=== PATIENT | female | born 1960 | race African-American/Black ===

== ENCOUNTER 2021-09-29 08:17 | Emergency (ER) | payer OTHER ==
[~2021-09-29] VITALS: Ht 170.2 cm; Wt 50.0 kg
[2021-09-29] MEDS ORDERED: LEVETIRACETAM 1000MG PREMIX 100 ML IV ONE (09:00)
[2021-09-29 09:24] LABS: EOSINOPHILS % 0.1 % (0.0-5.0); HEMOGLOBIN. 13.1 g/dL (12.0-16.0); LYMPHOCYTES % 18.6 % (20.0-50.0); MEAN CORPUSCULAR HEMOGLOBIN 30.2 pg (28.0-32.0); MEAN CORPUSCULAR VOLUME 92.3 fL (81.0-99.0); MEAN PLATELET VOLUME 9.5 fl (7.4-10.4); NEUTROPHILS % 74.3 % (40.0-76.0); PLATELET 257 x1000/uL (130-400); RED BLOOD CELL COUNT 4.34 mill/uL (4.2-5.4)
[2021-09-29 09:33] LABS: CHLORIDE 106 mEq/L (98-107)
[2021-09-29 10:46] VITALS: BP 132/76
[2021-09-29] MEDS ORDERED: KEPP500 MT (11:10)
== END 2021-09-29 15:46 | disposition home or self-care (01) ==
LOC: ER 08:17
DX: R56.9 Unspecified convulsions (principal); Z91.14 Patient's other noncompliance with medication regimen
CPT/HCPCS: 36415; 80053; 85025; 93005; 96365; 96366; 99284; J1953; Z7610

== ENCOUNTER 2022-03-04 03:58 | Inpatient (IN) | payer MEDICAID, OTHER ==
[~2022-03-04] VITALS: Ht 165.1 cm; Wt 99.8 kg
[~2022-03-04 03:58] MED LIST: KEPP500 MT
[2022-03-04] MEDS ORDERED: ONDANSETRON HCL 4MG/2ML INJ IV STA (04:21)
[2022-03-04] MEDS ORDERED: SODIUM CHLORIDE 0.9% 1,000 ML IV ONE (04:30)
[2022-03-04] MEDS ORDERED: LEVETIRACETAM 1000MG PREMIX 100 ML IV ONE (04:30)
[2022-03-04 04:45] LABS: BG BASE EXCESS -1.6 mmol/L (-2.0-2.0); BG DEOXYHEMOGLOBIN 2.7 % (0.0-5.0); BG FRACTION INSPIRED OXYGEN 100; BG HCO3 ACT 22.8 mmol/L (22.0-26.0); BG METHEMOGLOBIN 0.3 % (0.0-1.5); BG OXYGEN SATURATION 97.2 % (92.0-98.5); BG PCO2 37.8 mmHg (35.0-45.0); BG PH 7.399 (7.350-7.450); BG PO2 98.8 mmHg (75.0-100.0); BG SAMPLE SITE RIGHT BRACHIAL; BG TOTAL HEMOGLOBIN 12.4 g/dL (12.0-18.0); BG VENT MODE MASK - NRB
[2022-03-04 04:56] LABS: BASOPHILS % 0.8 % (0.0-2.0); EOSINOPHILS % 0.6 % (0.0-5.0); HEMATOCRIT. 36.6 % (36.0-48.0); LYMPHOCYTES % 13.6 % (20.0-50.0); MEAN CORPUSCULAR HEMOGLOBIN 30.4 pg (28.0-32.0); MEAN CORPUSCULAR VOLUME 92.5 fL (81.0-99.0); MEAN PLATELET VOLUME 8.4 fl (7.4-10.4); MONOCYTES % 5.9 % (2.0-8.0); NEUTROPHILS % 79.1 % (40.0-76.0); PLATELET 305 x1000/uL (130-400); RED BLOOD CELL COUNT 3.96 mill/uL (4.2-5.4); RED CELL DISTRIBUTION WIDTH 14.4 % (11.6-14.6)
[2022-03-04 05:02] LABS: CHLORIDE 109 mEq/L (98-107)
[2022-03-04 05:12] LABS: ETHANOL BLOOD < 10 mg/dL
[2022-03-04 10:02] LABS: *AMPHETAMINES SCREEN URINE NEGATIVE (NEGATIVE); *BARBITURATES SCREEN URINE NEGATIVE (NEGATIVE); *BENZODIAZEPINES SCREEN URINE PRESUMTIVE POSITIVE (NEGATIVE); *COCAINE SCREEN URINE NEGATIVE (NEGATIVE); CANNABINOID URINE SCREEN PRESUMTIVE POSITIVE (NEGATIVE); METHADONE URINE SCREEN NEGATIVE (NEGATIVE); OPIATES URINE SCREEN NEGATIVE (NEGATIVE); PHENCYCLIDINE URINE SCREEN NEGATIVE (NEGATIVE)
[2022-03-04] MEDS ORDERED: ACETAMINOPHEN 325MG TABLET PO PRN (11:15)
[2022-03-04] MEDS ORDERED: ONDANSETRON HCL 4MG/2ML INJ IV PRN (11:15)
[2022-03-04 20:17] LABS: CLARITY URINE TURBID (CLEAR); COLOR URINE ORANGE (YELLOW); KETONES URINE TRACE (NEGATIVE); LEUKOCYTE ESTERASE URINE NEGATIVE (NEGATIVE); NITRITE URINE NEGATIVE (NEGATIVE); OCCULT BLOOD URINE NEGATIVE (NEGATIVE); PH URINE 5.5 (4.5-8.0); PROTEIN URINE TRACE (NEGATIVE); SPECIFIC GRAVITY URINE 1.023 (1.005-1.030); UROBILINOGEN URINE 0.2 E.U./dL (0.2-1.0)
[2022-03-04] MEDS: LEVETIRACETAM 500MG TABLET PO SCH (21:15)
[2022-03-04 22:00] VITALS: BP 167/80
[2022-03-05] VITALS: BP 140/71
[2022-03-05 04:00] VITALS: BP 123/75
[2022-03-05 08:00] VITALS: BP 143/72
[2022-03-05] MEDS: LEVETIRACETAM 500MG TABLET PO SCH (08:44)
[2022-03-05 16:00] VITALS: BP 141/75
== END 2022-03-05 16:45 | disposition left against medical advice (07) | DRG 53 ==
LOC: ER 04:00 → 8WST 07:04 → ENRESERV 20:26
PROVIDERS: ADMIT Internal Medicine; ATTEND Internal Medicine
DX: G40.901 Epilepsy, unspecified, not intractable, with status epilepticus (principal); E44.1 Mild protein-calorie malnutrition; Z53.29 Procedure and treatment not carried out because of patient's decision for other reasons; F41.9 Anxiety disorder, unspecified; I51.7 Cardiomegaly; F12.90 Cannabis use, unspecified, uncomplicated; Z68.36 Body mass index [BMI] 36.0-36.9, adult; Z91.19 Patient's noncompliance with other medical treatment and regimen
CPT/HCPCS: 36415; 36600; 71045; 80053; 80305; 80320; 81003; 82375; 82805; 83605; 84145; 84484; 85025; 93005; 99291; J1953; J2405; J7030; G0480

== ENCOUNTER 2024-06-19 06:23 | Emergency (ER) | payer BC, MEDICAID ==
[~2024-06-19] VITALS: Ht 165.1 cm; Wt 91.0 kg
[2024-06-19 06:25] VITALS: O2SAT 98
[2024-06-19] MEDS: LEVETIRACETAM 500MG PREMIX 100 ML IV ONE ×2 (07:02→07:12)
[2024-06-19] MEDS: LACTATED RINGERS 1,000 ML IV SCH (07:02)
[2024-06-19 07:15] LABS: BASOPHILS % 1.5 % (0.0-2.0); EOSINOPHILS % 3.3 % (0.0-5.0); HEMATOCRIT. 33.7 % (36.0-48.0); HEMOGLOBIN. 11.1 g/dL (12.0-16.0); LYMPHOCYTES % 37.2 % (20.0-50.0); MEAN CORPUSCULAR HEMOGLOBIN 29.4 pg (28.0-32.0); MEAN CORPUSCULAR VOLUME 89.1 fL (81.0-99.0); MEAN PLATELET VOLUME 8.1 fl (7.4-10.4); MONOCYTES % 8.8 % (2.0-8.0); NEUTROPHILS % 49.2 % (40.0-76.0); PLATELET 283 x1000/uL (130-400); RED BLOOD CELL COUNT 3.78 mill/uL (4.2-5.4); RED CELL DISTRIBUTION WIDTH 14.7 % (11.6-14.6); WHITE BLOOD COUNT 5.9 x1000/uL (4.5-11.0)
[2024-06-19 07:19] LABS: CHLORIDE 104 mEq/L (98-107); POTASSIUM 3.9 mEq/L (3.5-5.1); SODIUM 139 mEq/L (136-145)
[2024-06-19 07:20] LABS: CALCIUM 9.5 mg/dL (8.7-10.4); CARBON DIOXIDE 27 mEq/L (21-32)
[2024-06-19 07:25] LABS: CREATININE 0.8 mg/dL (0.6-1.0); GLUCOSE 92 mg/dL (70-105); UREA NITROGEN BLOOD 15 mg/dL (9-23)
[2024-06-19 07:27] LABS: ALANINE AMINOTRANSFERASE 28 IU/L (10-49); ASPARTATE AMINOTRANSFERASE 16 IU/L (<34); BILIRUBIN TOTAL 0.3 mg/dL (0.1-1.0); PROTEIN TOTAL 7.8 g/dL (6.0-8.3)
[2024-06-19 07:30] VITALS: BP 137/75; PULSE 89; RESP 14; TEMP 36.83628; O2SAT 98
== END 2024-06-19 09:45 | disposition home or self-care (01) ==
LOC: ER 06:23
DX: R56.9 Unspecified convulsions (principal); I10 Essential (primary) hypertension
CPT/HCPCS: 99284; 96365; 80053; 85025; 36415; 93005; J1953

== ENCOUNTER 2024-09-19 09:10 | Emergency (ER) | payer MEDICAID ==
[~2024-09-19] VITALS: Ht 165.1 cm; Wt 99.0 kg
[~2024-09-19 09:10] MED LIST changes: +ATOR20TA65 MT; +ATOR20TA65 PO; +CYAN-33 PO; +DONE5TAB33 PO; +MAGN400T29 PO; +NITR-87 MT; +OXCA300T31 PO; +RISP-28 PO; +THIA50TA10 PO; +VITA400T9 PO; +ZONI100C34 PO
[2024-09-19 09:11] VITALS: O2SAT 96
[2024-09-19 09:58] LABS: BASOPHILS % 1.4 % (0.0-2.0); EOSINOPHILS % 3.5 % (0.0-5.0); HEMOGLOBIN. 11.5 g/dL (12.0-16.0); MEAN CORPUSCULAR HGB CONC 32.8 g/dL (31.0-37.0); MEAN CORPUSCULAR VOLUME 88.5 fL (81.0-99.0); MONOCYTES % 11.2 % (2.0-8.0); NEUTROPHILS % 50.9 % (40.0-76.0); PLATELET 251 x1000/uL (130-400); RED BLOOD CELL COUNT 3.96 mill/uL (4.2-5.4); WHITE BLOOD COUNT 9.1 x1000/uL (4.5-11.0)
[2024-09-19] MEDS: KETOROLAC 30MG/ML VIAL IV STA (09:58)
[2024-09-19] MEDS: LEVETIRACETAM 1000MG PREMIX 1,000 ML IV ONE (10:06)
[2024-09-19 10:17] LABS: CHLORIDE 104 mEq/L (98-107); POTASSIUM 4.1 mEq/L (3.5-5.1); SODIUM 141 mEq/L (136-145)
[2024-09-19 10:18] LABS: CARBON DIOXIDE 28 mEq/L (21-32)
[2024-09-19 10:19] LABS: CALCIUM 9.2 mg/dL (8.7-10.4)
[2024-09-19 10:23] LABS: CREATININE 0.8 mg/dL (0.6-1.0); GLUCOSE 103 mg/dL (70-105); UREA NITROGEN BLOOD 15 mg/dL (9-23)
[2024-09-19 12:15] VITALS: BP 138/72; PULSE 92; RESP 19; TEMP 36.7; O2SAT 100
== END 2024-09-19 12:30 | disposition home or self-care (01) ==
LOC: ER 09:10
DX: R56.9 Unspecified convulsions (principal); M25.561 Pain in right knee; I10 Essential (primary) hypertension; F20.9 Schizophrenia, unspecified; Z79.899 Other long term (current) drug therapy
CPT/HCPCS: 99285; 96365; 96375; 80048; 82962; 85025; 36415; 73560; 73590; 73600; 93005; J1885; A4606

== ENCOUNTER 2024-10-10 04:54 | Emergency (ER) | payer MEDICAID ==
[~2024-10-10] VITALS: Ht 167.6 cm; Wt 91.0 kg
[2024-10-10 04:56] VITALS: O2SAT 97
[2024-10-10] MEDS: LEVETIRACETAM 1000MG PREMIX 100 ML IV ONE (05:51)
[2024-10-10 06:15] LABS: CHLORIDE 105 mEq/L (98-107); POTASSIUM 4.6 mEq/L (3.5-5.1); SODIUM 139 mEq/L (136-145)
[2024-10-10 06:16] LABS: CALCIUM 9.2 mg/dL (8.7-10.4); CARBON DIOXIDE 26 mEq/L (21-32)
[2024-10-10 06:21] LABS: CREATININE 0.6 mg/dL (0.6-1.0); GLUCOSE 101 mg/dL (70-105); UREA NITROGEN BLOOD 14 mg/dL (9-23)
[2024-10-10 06:32] LABS: BASOPHILS % 0.8 % (0.0-2.0); EOSINOPHILS % 0.1 % (0.0-5.0); HEMATOCRIT. 36.4 % (36.0-48.0); HEMOGLOBIN. 11.6 g/dL (12.0-16.0); LYMPHOCYTES % 19.8 % (20.0-50.0); MEAN CORPUSCULAR HEMOGLOBIN 28.3 pg (28.0-32.0); MEAN CORPUSCULAR HGB CONC 31.9 g/dL (31.0-37.0); MEAN CORPUSCULAR VOLUME 88.8 fL (81.0-99.0); MEAN PLATELET VOLUME 9.2 fl (7.4-10.4); MONOCYTES % 6.7 % (2.0-8.0); NEUTROPHILS % 72.6 % (40.0-76.0); PLATELET 259 x1000/uL (130-400); RED CELL DISTRIBUTION WIDTH 15.2 % (11.6-14.6); WHITE BLOOD COUNT 10.1 x1000/uL (4.5-11.0)
[2024-10-10 06:57] LABS: ETHANOL BLOOD < 10 mg/dL (<10)
[2024-10-10 08:46] VITALS: BP 132/70; PULSE 93; RESP 16; TEMP 37; O2SAT 100
== END 2024-10-10 08:00 | disposition home or self-care (01) ==
LOC: ER 05:09
DX: G40.909 Epilepsy, unspecified, not intractable, without status epilepticus (principal); I10 Essential (primary) hypertension; F20.9 Schizophrenia, unspecified; F03.90 Unspecified dementia, unspecified severity, without behavioral disturbance, psychotic disturbance, mood disturbance, and anxiety; I67.82 Cerebral ischemia; Z79.899 Other long term (current) drug therapy
CPT/HCPCS: 80048; 80320; 85025; 36415; 70450; 96365; 99285; J1953; A4606; G0480

== ENCOUNTER 2024-11-14 09:33 | Emergency (ER) | payer MEDICAID ==
[~2024-11-14] VITALS: Ht 167.6 cm; Wt 114.0 kg
[2024-11-14 09:35] VITALS: O2SAT 99
[2024-11-14] MEDS: LEVETIRACETAM 1000MG PREMIX 100 ML IV ONE (10:07)
[2024-11-14 10:23] LABS: CHLORIDE 101 mEq/L (98-107); POTASSIUM 4.2 mEq/L (3.5-5.1); SODIUM 136 mEq/L (136-145)
[2024-11-14 10:24] LABS: BASOPHILS % 0.8 % (0.0-2.0); CARBON DIOXIDE 25 mEq/L (21-32); EOSINOPHILS % 0.1 % (0.0-5.0); HEMATOCRIT. 34.2 % (36.0-48.0); HEMOGLOBIN. 11.1 g/dL (12.0-16.0); LYMPHOCYTES % 13.7 % (20.0-50.0); MEAN CORPUSCULAR HGB CONC 32.4 g/dL (31.0-37.0); MEAN CORPUSCULAR VOLUME 89.3 fL (81.0-99.0); MEAN PLATELET VOLUME 8.9 fl (7.4-10.4); MONOCYTES % 6.1 % (2.0-8.0); NEUTROPHILS % 79.3 % (40.0-76.0); PLATELET 227 x1000/uL (130-400); RED BLOOD CELL COUNT 3.83 mill/uL (4.2-5.4); RED CELL DISTRIBUTION WIDTH 16.5 % (11.6-14.6); WHITE BLOOD COUNT 9.2 x1000/uL (4.5-11.0)
[2024-11-14 10:29] LABS: CREATININE 0.9 mg/dL (0.6-1.0); GLUCOSE 122 mg/dL (70-105); UREA NITROGEN BLOOD 11 mg/dL (9-23)
[2024-11-14 10:30] LABS: ETHANOL BLOOD < 10 mg/dL (<10); VALPROIC ACID 40.2 ug/mL (50-100)
[2024-11-14 11:43] VITALS: BP 138/71; PULSE 85; RESP 16; TEMP 36.7; O2SAT 99
== END 2024-11-14 12:00 | disposition home or self-care (01) ==
LOC: ER 09:33
DX: R56.9 Unspecified convulsions (principal); F20.9 Schizophrenia, unspecified; F03.90 Unspecified dementia, unspecified severity, without behavioral disturbance, psychotic disturbance, mood disturbance, and anxiety; I10 Essential (primary) hypertension; Z79.899 Other long term (current) drug therapy
CPT/HCPCS: 80048; 80320; 80165; 85025; 36415; 96365; 99284; J1953; G0480

== ENCOUNTER 2025-02-05 12:16 | Emergency (ER) | payer MEDICAID ==
[~2025-02-05] VITALS: Ht 167.6 cm; Wt 79.0 kg
[~2025-02-05 12:16] MED LIST changes: +ASPI-1497 MT; -ATOR20TA65 MT; -ATOR20TA65 PO; +ATOR40TA70 MT; +HYDR200T35 PO; +LACO50TA6 PO; -NITR-87 MT; +TOLT4CAP27 PO; +VALP250C3 PO
[2025-02-05 12:17] VITALS: O2SAT 96
[2025-02-05 12:56] LABS: BASOPHILS % 1.0 % (0.0-2.0); EOSINOPHILS % 0.1 % (0.0-5.0); HEMATOCRIT. 37.1 % (36.0-48.0); HEMOGLOBIN. 11.9 g/dL (12.0-16.0); LYMPHOCYTES % 23.6 % (20.0-50.0); MEAN PLATELET VOLUME 9.8 fl (7.4-10.4); MONOCYTES % 7.6 % (2.0-8.0); NEUTROPHILS % 67.7 % (40.0-76.0); PLATELET 173 x1000/uL (130-400); RED BLOOD CELL COUNT 3.98 mill/uL (4.2-5.4); RED CELL DISTRIBUTION WIDTH 15.0 % (11.6-14.6)
[2025-02-05 13:18] LABS: CREATININE 0.9 mg/dL (0.6-1.0); UREA NITROGEN BLOOD 14 mg/dL (9-23)
[2025-02-05 13:20] LABS: ASPARTATE AMINOTRANSFERASE 28 IU/L (<34)
[2025-02-05 13:21] LABS: BILIRUBIN TOTAL 0.6 mg/dL (0.1-1.0); PROTEIN TOTAL 7.5 g/dL (6.0-8.3); VALPROIC ACID 71.0 ug/mL (50-100)
[2025-02-05 17:10] VITALS: BP 134/78; PULSE 76; RESP 16; TEMP 36.7; O2SAT 94
== END 2025-02-05 18:20 | disposition home or self-care (01) ==
LOC: ER 12:16
DX: G40.909 Epilepsy, unspecified, not intractable, without status epilepticus (principal); F03.90 Unspecified dementia, unspecified severity, without behavioral disturbance, psychotic disturbance, mood disturbance, and anxiety; F20.9 Schizophrenia, unspecified; I10 Essential (primary) hypertension; Z79.899 Other long term (current) drug therapy
CPT/HCPCS: 36415; 80053; 80165; 82542; 83735; 85025; 99285